=== PATIENT | male | born 1985 | race Caucasian/White ===

== ENCOUNTER 2020-01-31 10:22 | Emergency (ER) | payer OTHER ==
[~2020-01-31] VITALS: Ht 175.3 cm; Wt 149.7 kg
[2020-01-31 10:28] VITALS: BP_SYST 163
[2020-01-31 12:50] VITALS: BP_SYST 159
== END 2020-01-31 12:50 | disposition home or self-care (01) ==
LOC: SED 10:22
DX: S62.522A Displaced fracture of distal phalanx of left thumb, initial encounter for closed fracture (principal); V49.9XXA Car occupant (driver) (passenger) injured in unspecified traffic accident, initial encounter; Y93.89 Activity, other specified; Y92.413 State road as the place of occurrence of the external cause; Y99.8 Other external cause status
CPT/HCPCS: 71045; 99284

== ENCOUNTER 2023-12-13 22:50 | Emergency (ER) | payer OTHER ==
[~2023-12-13] VITALS: Ht 175.3 cm; Wt 148.8 kg
[2023-12-13 23:01] VITALS: BP_SYST 195; PULSE 69; RESP 20; TEMP 97.6; O2SAT 94
[2023-12-14] MEDS: CYCLOBENZAPRINE HCL 10 MG TABLET (FLEXERIL) PO ONE (00:01)
[2023-12-14] MEDS: ACETAMINOPHEN 500 MG TABLET PO ONE (00:02)
[2023-12-14] MEDS: LIDOCAINE PATCH 5% 1 EA TP ONE (00:02)
[2023-12-14] MEDS: KETOROLAC TROMETHAMINE 30 MG VIAL IM ONE (00:02)
[2023-12-14] MEDS ORDERED: CYCL10TA24 PO (01:24)
[2023-12-14] MEDS ORDERED: LIDO1ADH14 TP (01:24)
[2023-12-14 01:36] VITALS: BP_SYST 136; PULSE 60; RESP 18; TEMP 97.6; O2SAT 98
[2023-12-16] MEDS ORDERED: NEU300 PO (21:16)
[2023-12-16] MEDS ORDERED: HYDR-3917 PO (21:16)
[2023-12-16] MEDS ORDERED: METH-634 PO (21:16)
== END 2023-12-14 01:36 | disposition home or self-care (01) ==
LOC: SED 22:50
DX: M54.12 Radiculopathy, cervical region (principal); R20.2 Paresthesia of skin; R03.0 Elevated blood-pressure reading, without diagnosis of hypertension; Z79.899 Other long term (current) drug therapy; Z79.2 Long term (current) use of antibiotics
CPT/HCPCS: 99284; 93005; 96372; J1885